=== PATIENT | male | born 1995 | race African-American/Black ===

== ENCOUNTER 2018-06-06 00:15 | Emergency (ER) | payer SELFPAY | END 2018-06-06 02:46 | disposition left against medical advice (07) | LOC: FTE 00:15 | DX: Z53.21 Procedure and treatment not carried out due to patient leaving prior to being seen by health care provider (principal) ==

== ENCOUNTER 2018-06-07 02:10 | Emergency (ER) | payer OTHER | END 2018-06-07 03:30 | disposition home or self-care (01) | LOC: FTE 02:10 | DX: R05 Cough (principal) | CPT/HCPCS: 99283; Z7502 ==

== ENCOUNTER 2018-06-07 05:53 | Emergency (ER) | payer OTHER ==
[2018-06-07 07:08] LABS: ADD MAN DIFF? NO
[2018-06-07 07:09] LABS: BASOPHIL # 0.1 10^3/ul (0.0-0.1); BASOPHILS % 0.6 % (0.0-2.0); EOSINOPHILS # 0.1 10^3/ul (0.0-0.5); EOSINOPHILS % 1.3 % (0.0-7.0); HEMATOCRIT 41.1 % (42.0-52.0); HEMOGLOBIN 13.2 g/dl (14.0-18.0); LYMPHOCYTES # 1.8 10^3/ul (0.8-2.9); LYMPHOCYTES % 20.1 % (15.0-51.0); MEAN CORPUSCULAR HEMOGLOBIN 29.3 pg (29.0-33.0); MEAN CORPUSCULAR HGB CONC 32.1 g/dl (32.0-37.0); MEAN CORPUSCULAR VOLUME 91.1 fl (82.0-101.0); MEAN PLATELET VOLUME 9.7 fl (7.4-10.4); MONOCYTES % 11.5 % (0.0-11.0); NEUTROPHILS % 66.3 % (39.0-77.0); PLATELET COUNT 277 10^3/UL (140-415); RED BLOOD COUNT 4.51 10^6/ul (4.70-6.10); RED CELL DISTRIBUTION WIDTH 11.9 % (11.5-14.5)
[2018-06-07 07:09] LABS: WHITE BLOOD COUNT 9.1 10^3/ul (4.8-10.8)
[2018-06-07 07:32] LABS: ANION GAP 9 (5-13); BLOOD UREA NITROGEN 14 mg/dl (7-20); CARBON DIOXIDE 28 mmol/L (21-31); CHLORIDE 107 mmol/L (97-110); Estimated GFR > 60 mL/min (>60); GLUCOSE 119 mg/dl (70-220); POTASSIUM 4.2 mmol/L (3.5-5.1); SODIUM 144 mmol/L (135-144)
== END 2018-06-07 08:39 | disposition home or self-care (01) ==
LOC: E/R 05:53
DX: R04.2 Hemoptysis (principal)
CPT/HCPCS: 71045; 80048; 85025; 99284-25

== ENCOUNTER 2018-08-15 16:50 | Emergency (ER) | payer OTHER ==
[2018-08-15] MEDS: KETOROLAC 30 MG INJ IM (18:58)
== END 2018-08-15 19:31 | disposition home or self-care (01) ==
LOC: FTE 16:50
DX: M54.9 Dorsalgia, unspecified (principal)
CPT/HCPCS: 96372; 99284-25